=== PATIENT | male | born 1975 | race Caucasian/White ===

== ENCOUNTER 2018-08-29 09:08 | Emergency (ER) | payer MEDICARE, MEDICAID ==
[~2018-08-29] VITALS: Ht 177.8 cm; Wt 100.0 kg
[~2018-08-29 09:08] MED LIST: NO HOME MEDS
[2018-08-29] MEDS ORDERED: TRAM50TA2 PO (10:23)
[2018-08-29 10:30] VITALS: BP 157/109
== END 2018-08-29 10:34 | disposition home or self-care (01) ==
LOC: ER 09:09
DX: M54.5 Low back pain (principal); R20.0 Anesthesia of skin; I10 Essential (primary) hypertension; F11.90 Opioid use, unspecified, uncomplicated; Z56.0 Unemployment, unspecified; Z88.0 Allergy status to penicillin
CPT/HCPCS: 72100; 99284

== ENCOUNTER 2019-09-05 14:50 | Emergency (ER) | payer MEDICARE, MEDICAID ==
[~2019-09-05] VITALS: Ht 182.9 cm; Wt 100.0 kg
[2019-09-05] MEDS ORDERED: LIDOcaine 1% W/epiNEPHrine 1:200,000 10ml vial IJ ONE (15:20)
[2019-09-05] MEDS ORDERED: TETanus/Pertussis (Acell)/Diphther VAC/PF (Tdap-Adult) 0.5ml syringe IMVAC ONE (15:20)
[2019-09-05] MEDS ORDERED: bacitracin 15gm ointment TP ONE (15:20)
[2019-09-05] MEDS ORDERED: ibuprofen tablet 400 MG TABLET PO ONE (16:15)
[2019-09-05 17:40] VITALS: BP 143/88
== END 2019-09-05 17:41 | disposition home or self-care (01) ==
LOC: ER 14:50
DX: S01.81XA Laceration without foreign body of other part of head, initial encounter (principal); I10 Essential (primary) hypertension; F11.90 Opioid use, unspecified, uncomplicated; Z56.0 Unemployment, unspecified; Z88.0 Allergy status to penicillin; W01.198A Fall on same level from slipping, tripping and stumbling with subsequent striking against other object, initial encounter; Y93.89 Activity, other specified; Y92.098 Other place in other non-institutional residence as the place of occurrence of the external cause; Y99.9 Unspecified external cause status
CPT/HCPCS: 12013; 90471; 90715; 99283

== ENCOUNTER 2019-09-18 09:48 | Emergency (ER) | payer MEDICARE, MEDICAID ==
[~2019-09-18] VITALS: Ht 185.4 cm; Wt 110.0 kg
[2019-09-18 09:54] VITALS: BP 129/96
--- NOTE | 2019-09-18 10:10 | NUR ---
SUTURE REMOVED FROM RIGHT FOREHEAD ABOVE EYEBROW. INCISION IN C/D/I WELL APPROX.
== END 2019-09-18 10:11 | disposition home or self-care (01) ==
LOC: ER 09:48
DX: S01.111D Laceration without foreign body of right eyelid and periocular area, subsequent encounter (principal); I10 Essential (primary) hypertension; F41.9 Anxiety disorder, unspecified; F32.9 Major depressive disorder, single episode, unspecified; F11.90 Opioid use, unspecified, uncomplicated; Z56.0 Unemployment, unspecified; Z88.0 Allergy status to penicillin; X58.XXXD Exposure to other specified factors, subsequent encounter
CPT/HCPCS: 99281